=== PATIENT | female | born 1930 | race Caucasian/White ===

== ENCOUNTER 2016-07-24 14:42 | Emergency (ER) | payer MEDICARE ==
[2010-02-05 08:09] VITALS: BMI 19.5
== END 2016-07-24 19:08 | disposition home or self-care (01) ==
LOC: D.ER 14:42
DX: Z43.1 Encounter for attention to gastrostomy (principal); R11.0 Nausea; R19.7 Diarrhea, unspecified; I10 Essential (primary) hypertension; F03.90 Unspecified dementia, unspecified severity, without behavioral disturbance, psychotic disturbance, mood disturbance, and anxiety; K21.9 Gastro-esophageal reflux disease without esophagitis; E87.6 Hypokalemia

== ENCOUNTER → 2017-01-09 13:01 | Outpatient (CLI) | payer MEDICARE ==
[2010-02-05 08:09] VITALS: BMI 19.5
== END | disposition home or self-care (01) ==
LOC: D.US 13:01
DX: E04.9 Nontoxic goiter, unspecified (principal)

== ENCOUNTER → 2017-02-09 11:47 | Outpatient (CLI) | payer MEDICARE ==
[2010-02-05 08:09] VITALS: BMI 19.5
== END | disposition home or self-care (01) ==
LOC: D.US 11:47
DX: E04.1 Nontoxic single thyroid nodule (principal)